=== PATIENT | male | born 1990 | race Asian ===

== ENCOUNTER 2025-06-26 06:57 | Outpatient (RCR) | payer OTHER, SELFPAY | END 2025-06-26 23:59 | disposition home or self-care (01) | LOC: RPT 06:57 | PROVIDERS: ATTENDING PHYSICIAN Nurse Practitioner Family | DX: M54.41 Lumbago with sciatica, right side (principal); M62.838 Other muscle spasm; Z73.6 Limitation of activities due to disability; R26.2 Difficulty in walking, not elsewhere classified; R26.89 Other abnormalities of gait and mobility; M79.605 Pain in left leg; M79.604 Pain in right leg; X50.9XXD Other and unspecified overexertion or strenuous movements or postures, subsequent encounter; R20.0 Anesthesia of skin; Y92.89 Other specified places as the place of occurrence of the external cause; Y93.89 Activity, other specified; Y99.0 Civilian activity done for income or pay | CPT/HCPCS: 97110; 97112; 97140; 97162 ==